=== PATIENT | male | born 1975 | race Caucasian/White ===

== ENCOUNTER 2017-11-10 00:56 | Emergency (ER) | payer BC, MEDICAID ==
[~2017-11-10] VITALS: Ht 177.8 cm; Wt 76.1 kg
[~2017-11-10 00:56] MED LIST: ALPR1TAB2 PO; LEVE500T54 PO
[2017-11-10] MEDS ORDERED: LORazepam 1MG TABLET ONE (03:09)
[2017-11-10 03:18] LABS: BASOPHILS # (AUTO) 0.02 x10^3/uL (0-0.1); BASOPHILS % (AUTO) 0 % (0-1); EOSINOPHILS # (AUTO) 0.04 x10^3/uL (0-0.4); EOSINOPHILS % (AUTO) 0 % (1-7); LYMPHOCYTES # (AUTO) 1.21 x10^3/uL (1-3.4); LYMPHOCYTES % (AUTO) 9 % (22-44); MD NO; MEAN CORPUSCULAR HEMOGLOBIN 30.5 pg (27.5-34.5); MEAN CORPUSCULAR HGB CONC 34.4 g/dL (33.2-36.2); MEAN CORPUSCULAR VOLUME 88.6 fL (81-97); MEAN PLATELET VOLUME 7.9 fL (7.4-10.4); MONOCYTES # (AUTO) 0.58 x10^3/uL (0.2-0.8); MONOCYTES % (AUTO) 4 % (2-9); NEUTROPHILS # (AUTO) 12.26 x10^3/uL (1.8-6.8); NEUTROPHILS % (AUTO) 87 % (42-75); PLATELET COUNT 282 x10^3/uL (130-400); RED BLOOD COUNT 4.49 x10^6/uL (4.38-5.82); RED CELL DISTRIBUTION WIDTH 13.9 % (9.4-14.8)
[2017-11-10 03:26] LABS: ALBUMIN 3.5 g/dL (3.4-5.0); ANION GAP 7 mmol/L (5-15); CALCIUM 8.7 mg/dL (8.5-10.1); CHLORIDE 101 mmol/L (98-107); CREATININE 0.91 mg/dL (0.7-1.3)
[2017-11-10] MEDS ORDERED: LORazepam 1MG TABLET PO ONE (03:30)
[2017-11-10 04:49] VITALS: BP 109/56
== END 2017-11-10 04:53 | disposition home or self-care (01) ==
LOC: ED 04:47
DX: R56.9 Unspecified convulsions (principal)
CPT/HCPCS: 36415; 70450; 80048; 82040; 85025; 99285

== ENCOUNTER 2018-01-17 17:51 | Emergency (ER) | payer MEDICAID ==
[~2018-01-17] VITALS: Ht 177.8 cm; Wt 75.0 kg
[2018-01-17] MEDS ORDERED: ACETAMINOPHEN 500 MG TABLET PO ONE (18:00)
[2018-01-17] MEDS ORDERED: CEFTRIAXONE 1,000 MG in SODIUM CHLORIDE 0.9% 50 ML IVPB ONE (18:00)
[2018-01-17] MEDS ORDERED: VANCOMYCIN PMX 1GM/200ML 200 ML IVPB ONE (18:00)
[2018-01-17] MEDS ORDERED: ACETAMINOPHEN 500 MG TABLET ONE (18:15)
[2018-01-17] MEDS ORDERED: LIDOCAINE-MPF 1%, 2ML ONE ×4 (18:19→19:51)
[2018-01-17] MEDS: SODIUM CHLORIDE 0.9% 1,000ML IVBOLUS ONE ×2 (18:19→19:23)
[2018-01-17] MEDS ORDERED: VANCOMYCIN PER PHARMACY MC PRN (18:30)
[2018-01-17] MEDS ORDERED: LIDOCAINE 1%, 10ML INFIL ONE (18:30)
[2018-01-17] MEDS ORDERED: VANCOMYCIN 1,500 MG in SODIUM CHLORIDE 0.9% 250 ML IV ONE (18:30)
[2018-01-17 19:08] LABS: BASOPHILS # (AUTO) 0.02 x10^3/uL (0-0.1); BASOPHILS % (AUTO) 0 % (0-1); EOSINOPHILS # (AUTO) 0.04 x10^3/uL (0-0.4); EOSINOPHILS % (AUTO) 1 % (1-7); LYMPHOCYTES # (AUTO) 0.98 x10^3/uL (1-3.4); LYMPHOCYTES % (AUTO) 14 % (22-44); MD NO; MEAN CORPUSCULAR HGB CONC 34.7 g/dL (33.2-36.2); MEAN CORPUSCULAR VOLUME 89.4 fL (81-97); MEAN PLATELET VOLUME 8.2 fL (7.4-10.4); MONOCYTES # (AUTO) 0.76 x10^3/uL (0.2-0.8); MONOCYTES % (AUTO) 11 % (2-9); NEUTROPHILS # (AUTO) 5.06 x10^3/uL (1.8-6.8); NEUTROPHILS % (AUTO) 74 % (42-75); PLATELET COUNT 286 x10^3/uL (130-400); RED BLOOD COUNT 3.83 x10^6/uL (4.38-5.82); RED CELL DISTRIBUTION WIDTH 13.4 % (9.4-14.8)
[2018-01-17 19:09] LABS: HCT (SEDRATE) 35.6 % (39.2-51.8)
[2018-01-17 19:20] LABS: ALBUMIN 3.2 g/dL (3.4-5.0); ANION GAP 5 mmol/L (5-15); CALCIUM 8.6 mg/dL (8.5-10.1); CHLORIDE 109 mmol/L (98-107); CREATININE 0.68 mg/dL (0.7-1.3)
[2018-01-17 21:24] VITALS: BP 126/78
== END 2018-01-17 21:30 | disposition home or self-care (01) ==
LOC: ED 18:30
DX: L03.116 Cellulitis of left lower limb (principal)
CPT/HCPCS: 10060; 20605; 36415; 73610; 80048; 82040; 85025; 85651; 86140; 87040; 96365; 96368; 99285; J0696; J3370; J3490; J7030; J7050

== ENCOUNTER 2019-06-06 02:10 | Emergency (ER) | payer MEDICAID ==
[~2019-06-06] VITALS: Ht 177.8 cm; Wt 76.0 kg
--- NOTE | 2019-06-06 02:21 | NUR ---
PT AMB TO ROOM WITH STEADY GAIT
--- NOTE | 2019-06-06 03:09 | NUR ---
THIS IS A 43Y M THAT COMES IN W/ C/O WOUNDS ON HANDS AND L FOREARM. PT STS HE WAS STAYING WITH PEOPLE THAT RECENTLY GOT DIAGNOSED WITH MRSA. PT DENIES ANY TRAUMA. PT CONNECTED TO MONITORING VSS
[2019-06-06 03:33] VITALS: BP 132/76
== END 2019-06-06 04:14 | disposition home or self-care (01) ==
LOC: ED 02:37
DX: L03.114 Cellulitis of left upper limb (principal); L03.113 Cellulitis of right upper limb; F17.210 Nicotine dependence, cigarettes, uncomplicated; G40.909 Epilepsy, unspecified, not intractable, without status epilepticus
CPT/HCPCS: 99283; 99406

== ENCOUNTER 2019-06-27 10:56 | Emergency (ER) | payer MEDICAID ==
[~2019-06-27] VITALS: Ht 172.7 cm; Wt 74.3 kg
[2019-06-27 11:14] VITALS: BP 127/73
[2019-06-27] MEDS ORDERED: LEVETIRACETAM 500 MG TABLET PO ONE (11:30)
[2019-06-27] MEDS ORDERED: LEVETIRACETAM 500 MG TABLET ONE (11:38)
[2019-06-27 12:16] LABS: BASOPHILS # (AUTO) 0.05 x10^3/uL (0-0.1); BASOPHILS % (AUTO) 1 % (0-1); EOSINOPHILS # (AUTO) 0.08 x10^3/uL (0-0.4); EOSINOPHILS % (AUTO) 1 % (1-7); LYMPHOCYTES # (AUTO) 1.77 x10^3/uL (1-3.4); LYMPHOCYTES % (AUTO) 21 % (22-44); MD NO; MEAN CORPUSCULAR HEMOGLOBIN 31.3 pg (27.5-34.5); MEAN CORPUSCULAR HGB CONC 33.7 g/dL (33.2-36.2); MEAN PLATELET VOLUME 7.7 fL (7.4-10.4); MONOCYTES % (AUTO) 9 % (2-9); NEUTROPHILS % (AUTO) 68 % (42-75); PLATELET COUNT 338 x10^3/uL (130-400); RED BLOOD COUNT 3.95 x10^6/uL (4.38-5.82); RED CELL DISTRIBUTION WIDTH 13.2 % (9.4-14.8)
--- NOTE | 2019-06-27 12:17 | NUR ---
PT TO CT AT THIS TIME.
[2019-06-27 12:27] LABS: ALBUMIN 3.2 g/dL (3.4-5.0); ANION GAP 9 mmol/L (5-15); CHLORIDE 106 mmol/L (98-107); CREATININE 0.92 mg/dL (0.7-1.3)
--- NOTE | 2019-06-27 12:30 | NUR ---
PT RETURNED FROM CT. DENIES ANY NEEDS OR CONCERNS, GF AT BEDSIDE. CALL LIGHT IN REACH.
== END 2019-06-27 14:41 | disposition home or self-care (01) ==
LOC: ED 11:41
DX: G40.909 Epilepsy, unspecified, not intractable, without status epilepticus (principal); F17.200 Nicotine dependence, unspecified, uncomplicated; Z72.9 Problem related to lifestyle, unspecified; Z86.19 Personal history of other infectious and parasitic diseases
CPT/HCPCS: 36415; 70450; 80048; 82040; 85025; 93005; 99284

== ENCOUNTER 2020-06-22 20:14 | Emergency (ER) | payer MEDICAID ==
[~2020-06-22] VITALS: Ht 177.8 cm; Wt 88.1 kg
--- NOTE | 2020-06-22 21:01 | NUR ---
PT CAME INTO ED TODAY D/T RECENT EPISODE OF NAUSEA AND VOMITTING ONCE AND "I AM REALY CONCERNED ABOUT COVID WITH THIS." PT DENIES DIARRHEA, CHANGES IN , NO APPETITE CHANGES, ONE EPISODE OF EMESIS, SLIGHT NAUSEATED AT THIS TIME. PT REPORTS OTHERWISE FEELING FINE. WCTM PT PLACED ON SPO2/BP MONITORING AT THIS TIME. JUDY HERNANDEZ AT BS FOR EVAL AND POC.
[2020-06-22] MEDS ORDERED: ONDANSETRON ODT 4 MG ONE (21:12)
[2020-06-22 21:25] VITALS: BP 136/89
--- NOTE | 2020-06-22 21:26 | NUR ---
Patient given discharge instructions and they have confirmed that they understand the instructions. Patient ambulatory with steady gait. NAD, DENIES ADDITIONAL NEEDS, ALL QUESTIONS ANSWERED APPROPRIATELY. NO PERSONAL BELONGINGS LEFT IN ROOM AFTER DC.
[2020-06-22] MEDS ORDERED: ONDANSETRON ODT 4 MG PO ONE (21:30)
== END 2020-06-22 21:45 | disposition home or self-care (01) ==
LOC: ED 20:30
DX: R11.0 Nausea (principal); R10.9 Unspecified abdominal pain
CPT/HCPCS: 99283; Q0162

== ENCOUNTER 2020-08-12 00:11 | Emergency (ER) | payer MEDICAID ==
[~2020-08-12] VITALS: Ht 177.8 cm; Wt 90.3 kg
[2020-08-12 00:16] VITALS: BP 126/82
--- NOTE | 2020-08-12 01:23 | NUR ---
stringing machine tender: attempted to place pt in room, no answer in lobby
--- NOTE | 2020-08-12 01:28 | NUR ---
Pt was called x3 from karolina guaman stated she saw him take of the b/p cuff leave it on the chair and walked out of hospital. LWBS
== END 2020-08-12 01:30 | disposition left against medical advice (07) ==
LOC: ED 00:16
DX: R50.9 Fever, unspecified (principal); Z53.21 Procedure and treatment not carried out due to patient leaving prior to being seen by health care provider